=== PATIENT | female | born 1940 | race Caucasian/White ===

== ENCOUNTER 2019-02-01 07:30 | Inpatient (IN) | payer MEDICARE, OTHER ==
[2019-01-28 16:03] LABS: BASOPHILS # (AUTO) 0.1 X10'3 (0-0.2); BASOPHILS % (AUTO) 0.8 % (0-1); EOSINOPHILS # (AUTO) 0.1 X10'3 (0-0.9); EOSINOPHILS % (AUTO) 0.8 % (0-6); LYMPHOCYTES # (AUTO) 1.3 X10'3 (1.1-4.8); LYMPHOCYTES % (AUTO) 15.9 % (21-51); MEAN CORPUSCULAR HEMOGLOBIN 31.3 PG (27.0-31.0); MEAN CORPUSCULAR HGB CONC 33.9 g/dL (33.0-36.5); MEAN CORPUSCULAR VOLUME 92.4 FL (78-98); MEAN PLATELET VOLUME 7.8 FL (7.4-10.4); MONOCYTES # (AUTO) 0.8 X10'3 (0-0.9); MONOCYTES % (AUTO) 9.3 % (2-12); NEUTROPHILS # (AUTO) 6.2 X10'3 (1.8-7.7); NEUTROPHILS % (AUTO) 73.2 % (42-75); PRE OP HEMATOCRIT 37.5 % (35.0-45.0); PRE OP HEMOGLOBIN 12.7 g/dL (12.0-16.0); PRE OP PLATELET COUNT 436 X10'3 (140-440); RED BLOOD COUNT 4.06 X10'6 (4.20-5.60); RED CELL DISTRIBUTION WIDTH 13.4 % (11.5-14.5)
[2019-01-28 16:14] LABS: ALBUMIN 3.4 G/DL (3.4-5.0); ALBUMIN/GLOBULIN RATIO 0.9 (1.1-1.5); ALKALINE PHOSPHATASE 112 IU/L (46-116); BLOOD UREA NITROGEN 29 MG/DL (7-18); BUN/CREATININE RATIO 35.8 (6.6-38.0); CALCIUM 8.9 MG/DL (8.5-10.1); CHLORIDE 105 MMOL/L (99-107); CREATININE 0.81 MG/DL (0.40-0.90); PRE OP ALT 34 U/L (30-65); PRE OP ANION GAP 4 (8-16); PRE OP AST 26 U/L (10-37); PRE OP BILIRUB, TOTAL 0.5 MG/DL (0.0-1.0); PRE OP GLUCOSE 94 MG/DL (70-104); PRE OP SODIUM 139 MMOL/L (135-145); TOTAL CARBON DIOXIDE 30.2 MMOL/L (24-32); TOTAL PROTEIN 7.2 G/DL (6.4-8.2); eGFR 68 ML/MIN
[~2019-02-01] VITALS: Ht 165.1 cm; Wt 75.2 kg
[~2019-02-01 07:30] MED LIST: ASPI81TA96 PO; CALC-89 PO; CARB-87 PO; CHOL200035 PO; DICL1ADH18; DICL50TA8 PO; HYDR-4383 PO; HYDR12.597 PO; LOSA50TA3 PO; POLY17PO10 PO; QUET-1 PO; ROSU20TA2 PO; SENN-162 PO; SERT50TA PO; UBID100C16 PO; VANCOMYCIN 1,500MG inj. 1,500 MG in normal saline 250ml IV soln 280 ML IV ONE; ZOLP6.2523 PO; cefazolin/dext.iso 2gm/100 ML IV ONE; famotidine 20mg tablet PO ONE; ringers solution, lacted 1,000 ML IV SCH
[2019-02-04] VITALS (18 sets, daily range): BP systolic 129–165; BP diastolic 53–79
[2019-02-04] MEDS ORDERED: ringers solution, lacted 1,000 ML IV SCH ×2 (05:00→10:59)
[2019-02-04] MEDS ORDERED: famotidine 20mg tablet PO ONE (05:30)
[2019-02-04] MEDS ORDERED: VANCOMYCIN 1,500MG inj. 1,500 MG in normal saline 250ml IV soln 280 ML IV ONE (05:30)
[2019-02-04] MEDS ORDERED: cefazolin/dext.iso 2gm/100 ML IV ONE (05:30)
[2019-02-04] MEDS ORDERED: proCHLORperazine 10 MG/2 ml inj IV PRN (11:00)
[2019-02-04] MEDS ORDERED: ondansetron/PF 4mg/2ml inj IV PRN ×2 (11:00→16:25)
[2019-02-04] MEDS ORDERED: morphine 4 MG/ML inj SYRINge IV PRN ×2 (11:00)
[2019-02-04] MEDS ORDERED: meperidine/PF 25mg/ml syringe IV PRN ×3 (11:00)
[2019-02-04] MEDS ORDERED: HYDROcodone/acetaminophen 5mg/325mg tablet PO ONE (11:35)
[2019-02-04] MEDS ORDERED: ROPIVAcaine 0.5% (5mg/ml) 30ml vial ONE (12:09)
[2019-02-04] MEDS ORDERED: ketorolac trometh. 30mg/ml inj. ONE (12:09)
[2019-02-04] MEDS ORDERED: tranexamic acid inj. 770 MG in normal saline 100ml IV soln 100 ML IV ONE ×2 (13:00→13:05)
[2019-02-04] MEDS ORDERED: fentaNYL/PF 50MCG/1 ML 2ML syringe ONE (13:59)
[2019-02-04] MEDS ORDERED: ondansetron/PF 4mg/2ml inj ONE (14:01)
[2019-02-04] MEDS ORDERED: LIDOcaine 1%/PF 5ML 10 MG/ML VIAL ONE (14:01)
[2019-02-04] MEDS ORDERED: sevoflurane 250ml liquid IH ONE (14:01)
[2019-02-04] MEDS ORDERED: midazolam 2 mg/2 ml injection ONE (14:05)
[2019-02-04] MEDS ORDERED: ROPIVAcaine 0.2%/PF PAIN PUMP 500 ML IJ SCH (16:00)
[2019-02-04] MEDS ORDERED: propofol inj 20 ML IV ONE (16:06)
[2019-02-04] MEDS ORDERED: dexamethasone sod phosphate 4mg/ml inj. ONE (16:06)
--- NOTE | 2019-02-04 16:19 | NUR ---
Received from OR via , accompanied by Anesthesiologist DR DOUGHERTY and report given by Anesthesiolgist. AWAKENS TO VOICE. VITALS STABLE. DRESSING DI. JOSE PAIN. RUE IN SLING. FINGERS WARM AND PINK.
[2019-02-04] MEDS ORDERED: HYDROmorphone 1 mg/ml syringe IV PRN (16:25)
[2019-02-04] MEDS ORDERED: magnesium hydroxide 30ml (MOM) UD suspension PO PRN (16:25)
[2019-02-04] MEDS ORDERED: bisacodyl 10mg suppository rectal RC PRN (16:25)
[2019-02-04] MEDS ORDERED: acetaminophen 325mg tablet PO PRN (16:25)
[2019-02-04] MEDS ORDERED: sennosides 8.6mg tablet PO PRN (16:25)
[2019-02-04] MEDS ORDERED: HYDROmorphone inj. 0.5 MG/0.5 ML DISP.SYRIN IV PRN (16:25)
[2019-02-04] MEDS ORDERED: diphenhydrAMINE 25mg capsule PO PRN ×2 (16:25)
--- NOTE | 2019-02-04 17:15 | NUR ---
Patient report received from Rosalio VAZQUEZ
--- NOTE | 2019-02-04 17:19 | NUR ---
Report called to receiving nurse. Transferred via BED Belongings . Special Issues communicated to receiving nurse. AWAKE AND ORIENTED. VITALS STABLE. DRESSING DI. JOSE PAIN. TO ORTHO RM 4012B AT THIS TIME.
--- NOTE | 2019-02-04 18:39 | NUR ---
Problems reprioritized. Patient report given, questions answered & plan of care reviewed with Lisa VAZQUEZ.
--- NOTE | 2019-02-04 18:43 | NUR ---
RC'D VERBAL REPORT FROM MARYELLEN AND ASSUMED CARE OF PATIENT.
[2019-02-04] MEDS ORDERED: tranexamic acid inj. 750 MG in normal saline 100ml IV soln 100 ML IV ONE (19:30)
[2019-02-04] MEDS ORDERED: vancomycin/NS 1 GM ADD-VANTAGE 250 ML IV SCH (20:00)
[2019-02-04] MEDS: ketorolac tromethamine 15mg/ml inj. IV SCH (20:10)
[2019-02-04] MEDS: acetaminophen 325mg tablet PO SCH (20:11)
[2019-02-04] MEDS ORDERED: Rosuvastatin 20 MG TAB PO SCH (21:00)
[2019-02-04] MEDS: zolpidem 5mg tablet PO SCH (21:00)
[2019-02-04] MEDS: QUEtiapine 25mg tablet PO SCH (21:27)
[2019-02-04] MEDS: sennosides 8.6mg tablet PO SCH (21:27)
[2019-02-04] MEDS: carbidoba-levodopa 25-100mg tablet PO SCH (21:28)
[2019-02-04] MEDS: potassium cl 20mEq in 1/2 NS 1,000 ML IV SCH (21:50)
[2019-02-05] MEDS: ceFAZolin 1GM/D5W- ADD-VANTAGE 50 ML IV SCH ×2 (00:15→08:27)
[2019-02-05] MEDS: ketorolac tromethamine 15mg/ml inj. IV SCH ×3 (02:00→13:16)
[2019-02-05] MEDS: acetaminophen 325mg tablet PO SCH ×4 (02:00→19:56)
[2019-02-05 06:10] VITALS: BP 128/55
[2019-02-05 06:28] LABS: ANION GAP 7 (8-16); CHLORIDE 104 MMOL/L (99-107); POTASSIUM 5.7 MMOL/L (3.5-5.1); SODIUM 132 MMOL/L (135-145); TOTAL CARBON DIOXIDE 21.5 MMOL/L (24-32)
--- NOTE | 2019-02-05 06:38 | NUR ---
SLEPT FAIRLY WELL LAST NIGHT, DID WAKE UP AT ONE POINT AND WAS DISORIENTED, SPEAKING UPPER SORBIAN TO STAFF, BUT REASSURED AND DID CALM DOWN. STATED "I MUST HAVE BEEN DREAMING". UP TO VOID WITH 1 ASSIT MULTIPLE TIMES WITH ADEQUATE OUTPUT., REPORT TO EARLY SHIFT
[2019-02-05 06:58] LABS: BASOPHILS % (AUTO) 0.2 % (0-1); EOSINOPHILS % (AUTO) 0 % (0-6); HEMATOCRIT 30.7 % (35.0-45.0); HEMOGLOBIN 10.6 g/dl (12.0-16.0); LYMPHOCYTES # (AUTO) 0.7 X10'3 (1.1-4.8); LYMPHOCYTES % (AUTO) 6.8 % (21-51); MEAN CORPUSCULAR HEMOGLOBIN 31.9 PG (27.0-31.0); MEAN CORPUSCULAR HGB CONC 34.5 g/dL (33.0-36.5); MEAN CORPUSCULAR VOLUME 92.5 FL (78-98); MEAN PLATELET VOLUME 8.9 FL (7.4-10.4); MONOCYTES # (AUTO) 0.5 X10'3 (0-0.9); MONOCYTES % (AUTO) 5.1 % (2-12); NEUTROPHILS # (AUTO) 9.2 X10'3 (1.8-7.7); NEUTROPHILS % (AUTO) 87.9 % (42-75); PLATELET COUNT 279 X10'3 (140-440); RED BLOOD COUNT 3.31 X10'6 (4.20-5.60); RED CELL DISTRIBUTION WIDTH 13.4 % (11.5-14.5); WHITE BLOOD COUNT 10.4 X10'3 (4.5-11.0)
[2019-02-05] MEDS ORDERED: [UNRECOGNIZED DRUG - OTHER] PO SCH (08:00)
[2019-02-05] MEDS ORDERED: PYRIDOXINE PO SCH (08:00)
[2019-02-05] MEDS ORDERED: non-formulary drug (Ubidecarenone (Coq-10) 200 MG) PO SCH (08:00)
[2019-02-05] MEDS ORDERED: CALCIUM PO SCH (08:00)
[2019-02-05] MEDS ORDERED: VIT B12 PO SCH (08:00)
[2019-02-05] MEDS: potassium cl 20mEq in 1/2 NS 1,000 ML IV SCH (08:21)
[2019-02-05] MEDS: sertraline 50mg tablet PO SCH (08:25)
[2019-02-05] MEDS: aspirin 325mg tablet PO SCH (08:26)
[2019-02-05] MEDS: carbidoba-levodopa 25-100mg tablet PO SCH ×3 (08:26→20:07)
[2019-02-05] MEDS: vitamin D (cholecalciferol) 1,000 unit tablet PO SCH (08:26)
[2019-02-05] MEDS: losartan 50mg tablet PO SCH (08:30)
[2019-02-05 10:00] VITALS: BP 132/58
--- NOTE | 2019-02-05 11:40 | NUR ---
Joint replacement consult: Pt seen by HELEN for written and verbal high protein education. RD reviewed high protein needs for wound healing, immune strength, high protein foods, and protein supplementation options. RD contact information provided. Pt currently on a regular diet with documented 25-50% PO intake of dinner last evening, pending documented PO intake today. Pt endorses a good appetite and denies any food allergies or difficulty chewing/swallowing. Pt agreeable to chocolate Ensure for additional protein needs. Recommend Ensure High Protein MD beryl DELA CRUZ d/w dietary. Will continue to follow. Addendum: 02/05/19 at [address] Amended: Links added.
[2019-02-05] MEDS ORDERED: lactose-reduced food (Ensure High Protein) 237ml bottle PO SCH (13:00)
[2019-02-05] MEDS: oxyCODONE IR 5mg (immed. release) tablet PO PRN ×3 (14:17→22:16)
--- NOTE | 2019-02-05 15:00 | NUR ---
On q put at 6ml.hr
--- NOTE | 2019-02-05 15:43 | NUR ---
Patient report given to Mati VAZQUEZ
[2019-02-05 18:00] VITALS: BP 119/35
--- NOTE | 2019-02-05 18:15 | NUR ---
increased on q to 8ml/hr
--- NOTE | 2019-02-05 18:16 | NUR ---
Problems reprioritized. Patient report given, questions answered & plan of care reviewed with alize VAZQUEZ.
--- NOTE | 2019-02-05 18:23 | NUR ---
Patient in room ORTHO 4012. I have received report from Mati VAZQUEZ and had the opportunity to ask questions and assume patient care.
[2019-02-05] MEDS: celeCOXIB 100mg capsule PO SCH (19:56)
[2019-02-05] MEDS: sennosides 8.6mg tablet PO SCH (20:07)
[2019-02-05] MEDS: QUEtiapine 25mg tablet PO SCH (20:07)
[2019-02-05] MEDS: zolpidem 5mg tablet PO SCH (20:11)
[2019-02-05] MEDS ORDERED: ROSUVASTATIN 20MG PO SCH (21:00)
[2019-02-05 22:00] VITALS: BP 129/39
[2019-02-06] MEDS: oxyCODONE IR 5mg (immed. release) tablet PO PRN ×3 (01:59→09:32)
[2019-02-06] MEDS: acetaminophen 325mg tablet PO SCH ×2 (01:59→08:31)
[2019-02-06 06:10] VITALS: BP 124/52
--- NOTE | 2019-02-06 06:33 | NUR ---
Problems reprioritized. Patient report given, questions answered & plan of care reviewed with María Elena VAZQUEZ.
--- NOTE | 2019-02-06 06:40 | NUR ---
Patient in room ORTHO 4012. I have received report from Pratibha VAZQUEZ and had the opportunity to ask questions and assume patient care.
[2019-02-06 06:46] LABS: BASOPHILS % (AUTO) 0.4 % (0-1); EOSINOPHILS # (AUTO) 0.1 X10'3 (0-0.9); EOSINOPHILS % (AUTO) 0.9 % (0-6); HEMATOCRIT 34.4 % (35.0-45.0); HEMOGLOBIN 11.6 g/dl (12.0-16.0); LYMPHOCYTES # (AUTO) 2.5 X10'3 (1.1-4.8); LYMPHOCYTES % (AUTO) 28.5 % (21-51); MEAN CORPUSCULAR HEMOGLOBIN 31.7 PG (27.0-31.0); MEAN CORPUSCULAR HGB CONC 33.8 g/dL (33.0-36.5); MEAN CORPUSCULAR VOLUME 93.7 FL (78-98); MEAN PLATELET VOLUME 8.7 FL (7.4-10.4); MONOCYTES # (AUTO) 0.9 X10'3 (0-0.9); MONOCYTES % (AUTO) 9.7 % (2-12); NEUTROPHILS # (AUTO) 5.3 X10'3 (1.8-7.7); NEUTROPHILS % (AUTO) 60.5 % (42-75); PLATELET COUNT 333 X10'3 (140-440); RED BLOOD COUNT 3.67 X10'6 (4.20-5.60); RED CELL DISTRIBUTION WIDTH 13.6 % (11.5-14.5); WHITE BLOOD COUNT 8.8 X10'3 (4.5-11.0)
[2019-02-06] MEDS ORDERED: HYDROchlorothiazide 12.5mg capsule PO SCH (08:00)
[2019-02-06] MEDS: losartan 50mg tablet PO SCH (08:00)
[2019-02-06] MEDS: celeCOXIB 100mg capsule PO SCH (08:30)
[2019-02-06] MEDS: aspirin 325mg tablet PO SCH (08:30)
[2019-02-06] MEDS: carbidoba-levodopa 25-100mg tablet PO SCH (08:30)
[2019-02-06] MEDS: vitamin D (cholecalciferol) 1,000 unit tablet PO SCH (08:30)
[2019-02-06] MEDS: sertraline 50mg tablet PO SCH (08:30)
[2019-02-06 10:00] VITALS: BP 132/58
--- NOTE | 2019-02-06 10:15 | NUR ---
Patient discharged with and family they were taught all discharge instructions. She was rolled out in wheelchair.
[2019-02-06] MEDS ORDERED: acetaminophen 325mg tablet PO PRN (16:25)
== END 2019-02-06 10:10 | disposition home or self-care (01) | DRG 483 ==
LOC: EDSTATUS 07:30 → PAS IN 02-04 09:47 → EDSTATUS 02-04 12:15 → ORTHO 4S 02-04 17:30
PROVIDERS: ADMIT Orthopaedic Surgery; ATTEND Orthopaedic Surgery
PROC: 3E0T3BZ Introduction of Anesthetic Agent into Peripheral Nerves and Plexi, Percutaneous Approach (ICD-10-PCS; 2019-02-04)
PROC: 0RRJ00Z Replacement of Right Shoulder Joint with Reverse Ball and Socket Synthetic Substitute, Open Approach (ICD-10-PCS; principal; 2019-02-04 14:01)
DX: S42.231A 3-part fracture of surgical neck of right humerus, initial encounter for closed fracture (principal); I10 Essential (primary) hypertension; G89.29 Other chronic pain; W01.0XXA Fall on same level from slipping, tripping and stumbling without subsequent striking against object, initial encounter; G20 Parkinson's disease; K21.9 Gastro-esophageal reflux disease without esophagitis; F32.9 Major depressive disorder, single episode, unspecified; F41.9 Anxiety disorder, unspecified; I25.10 Atherosclerotic heart disease of native coronary artery without angina pectoris; Y93.89 Activity, other specified; Y99.8 Other external cause status; Z98.42 Cataract extraction status, left eye; Z98.41 Cataract extraction status, right eye; Y92.091 Bathroom in other non-institutional residence as the place of occurrence of the external cause
CPT/HCPCS: 36415; 71046; 80051; 80053; 82948; 85025; 87070; 93005; 97110; 97116; 97161; A7000; G0378; J0690; J1100; J1170; J1885; J2001; J2250; J2405; J2704; J2795; J3010; J3370; J7030; J7040; J7120

== ENCOUNTER 2020-09-14 08:05 | Emergency (ER) | payer MEDICARE, OTHER ==
[~2020-09-14] VITALS: Ht 165.1 cm; Wt 74.0 kg
[~2020-09-14 08:05] MED LIST changes: -DICL1ADH18; +DICL1PAT13; -SENN-162 PO; +SENN-263 PO; -VANCOMYCIN 1,500MG inj. 1,500 MG in normal saline 250ml IV soln 280 ML IV ONE; -cefazolin/dext.iso 2gm/100 ML IV ONE; -famotidine 20mg tablet PO ONE; -ringers solution, lacted 1,000 ML IV SCH
[2020-09-14] MEDS ORDERED: mineral oil 133ml enema RC PRN (08:35)
--- NOTE | 2020-09-14 09:46 | NUR ---
Spoke with pt's Fredrick. He is going to go home and we can call him when she is ready to go.
--- NOTE | 2020-09-14 09:52 | NUR ---
Dr Swanson aware that the pt did not have any results from the enema.
[2020-09-14 10:40] LABS: BASOPHILS % (AUTO) 0.7 % (0-1); EOSINOPHILS % (AUTO) 0.9 % (0-6); HEMATOCRIT 43.6 % (35.0-45.0); HEMOGLOBIN 14.5 g/dl (12.0-16.0); LYMPHOCYTES # (AUTO) 1.2 X10'3 (1.1-4.8); LYMPHOCYTES % (AUTO) 23.2 % (21-51); MEAN CORPUSCULAR HEMOGLOBIN 30.5 PG (27.0-31.0); MEAN CORPUSCULAR HGB CONC 33.3 g/dL (33.0-36.5); MEAN CORPUSCULAR VOLUME 91.5 FL (78-98); MEAN PLATELET VOLUME 9.4 FL (7.4-10.4); MONOCYTES # (AUTO) 0.5 X10'3 (0-0.9); MONOCYTES % (AUTO) 9.6 % (2-12); NEUTROPHILS # (AUTO) 3.3 X10'3 (1.8-7.7); NEUTROPHILS % (AUTO) 65.6 % (42-75); PLATELET COUNT 240 X10'3 (140-440); RED BLOOD COUNT 4.77 X10'6 (4.20-5.60); RED CELL DISTRIBUTION WIDTH 14.7 % (11.5-14.5)
[2020-09-14 10:55] LABS: ALANINE AMINOTRANSFERASE 42 U/L (12-78); ALBUMIN 3.9 G/DL (3.4-5.0); ALBUMIN/GLOBULIN RATIO 1.3 (1.1-1.5); ALKALINE PHOSPHATASE 73 IU/L (46-116); ANION GAP 8 (8-16); ASPARTATE AMINO TRANSFERASE 22 U/L (10-37); BILIRUBIN,TOTAL 0.4 MG/DL (0.1-1.0); BLOOD UREA NITROGEN 14 MG/DL (7-18); BUN/CREATININE RATIO 16.3 (6.6-38.0); CALCIUM 8.9 MG/DL (8.5-10.1); CHLORIDE 105 MMOL/L (99-107); CREATININE 0.86 MG/DL (0.40-0.90); GLUCOSE 104 MG/DL (70-104); POTASSIUM 3.6 MMOL/L (3.5-5.1); SODIUM 141 MMOL/L (135-145); TOTAL CARBON DIOXIDE 28.5 MMOL/L (24-32); eGFR 63 ML/MIN
[2020-09-14] MEDS ORDERED: iohexol 300mg/ml 100ml inj. ONE (11:10)
--- NOTE | 2020-09-14 11:13 | NUR ---
Pt transported to CT with tech via wheelchair.
--- NOTE | 2020-09-14 11:29 | NUR ---
Pt returned from CT via wheelchair with tech.
[2020-09-14 11:35] LABS: CLARITY,URINE CLEAR (Clear); COLOR,URINE YELLOW (Yellow); GLUCOSE, URINE NEGATIVE (Neg); KETONES,URINE NEGATIVE (Neg); LEUKOCYTE ESTERASE ,URINE NEGATIVE (Neg); NITRITES, URINE NEGATIVE (Neg); OCCULT BLOOD,URINE NEGATIVE (Neg); PROTEIN,URINE NEGATIVE (Neg); UROBILINOGEN,URINE 0.2 E.U/dL (0.2-1.0)
[2020-09-14 11:36] LABS: UA COLLECTION TYPE STRAIGHT CATH
[2020-09-14] MEDS ORDERED: PEG1POWD PO (12:30)
[2020-09-14 12:58] VITALS: BP 165/77
== END 2020-09-14 13:01 | disposition home or self-care (01) ==
LOC: ER 08:06
DX: K59.00 Constipation, unspecified (principal); R11.0 Nausea; I25.10 Atherosclerotic heart disease of native coronary artery without angina pectoris; E78.00 Pure hypercholesterolemia, unspecified; I10 Essential (primary) hypertension; I25.2 Old myocardial infarction; K21.9 Gastro-esophageal reflux disease without esophagitis; G89.29 Other chronic pain; F32.9 Major depressive disorder, single episode, unspecified; Z87.440 Personal history of urinary (tract) infections; Z98.890 Other specified postprocedural states; Z88.8 Allergy status to other drugs, medicaments and biological substances; Z79.82 Long term (current) use of aspirin; Z79.899 Other long term (current) drug therapy
CPT/HCPCS: 36415; 74177; 80053; 81003; 85025; 99285; Q9967

== ENCOUNTER 2021-04-10 18:23 | Emergency (ER) | payer MEDICARE, OTHER ==
[~2021-04-10] VITALS: Ht 165.1 cm; Wt 75.0 kg
[~2021-04-10 18:23] MED LIST changes: +CARB-296 PO; -CARB-87 PO; +PEG1POWD PO
[2021-04-10 18:27] VITALS: BP 140/98
[2021-04-10 19:06] LABS: BASOPHILS % (AUTO) 0.5 % (0-1); EOSINOPHILS % (AUTO) 0.6 % (0-6); HEMOGLOBIN 13.5 g/dl (12.0-16.0); LYMPHOCYTES # (AUTO) 1.3 X10'3 (1.1-4.8); LYMPHOCYTES % (AUTO) 20.8 % (21-51); MEAN CORPUSCULAR HEMOGLOBIN 31.2 PG (27.0-31.0); MEAN CORPUSCULAR VOLUME 94.6 FL (78-98); MEAN PLATELET VOLUME 8.8 FL (7.4-10.4); MONOCYTES # (AUTO) 0.5 X10'3 (0-0.9); MONOCYTES % (AUTO) 8.1 % (2-12); NEUTROPHILS # (AUTO) 4.5 X10'3 (1.8-7.7); PLATELET COUNT 280 X10'3 (140-440); RED BLOOD COUNT 4.33 X10'6 (4.20-5.60); RED CELL DISTRIBUTION WIDTH 13.9 % (11.5-14.5); WHITE BLOOD COUNT 6.4 X10'3 (4.5-11.0)
[2021-04-10 19:09] LABS: ALANINE AMINOTRANSFERASE 18 U/L (12-78); ALBUMIN 3.8 G/DL (3.4-5.0); ALBUMIN/GLOBULIN RATIO 1.1 (1.1-1.5); ALKALINE PHOSPHATASE 61 IU/L (46-116); ANION GAP 8 (8-16); ASPARTATE AMINO TRANSFERASE 22 U/L (10-37); BILIRUBIN,TOTAL 0.6 MG/DL (0.1-1.0); BLOOD UREA NITROGEN 23 MG/DL (7-18); BUN/CREATININE RATIO 21.9 (6.6-38.0); CALCIUM 8.8 MG/DL (8.5-10.1); CHLORIDE 104 MMOL/L (99-107); CREATININE 1.05 MG/DL (0.40-0.90); GLUCOSE 102 MG/DL (70-104); POTASSIUM 3.5 MMOL/L (3.5-5.1); SODIUM 141 MMOL/L (135-145); TOTAL CARBON DIOXIDE 28.7 MMOL/L (24-32); TOTAL PROTEIN 7.4 G/DL (6.4-8.2); eGFR 50 ML/MIN
[2021-04-10 19:21] LABS: CLARITY,URINE CLEAR (Clear); COLOR,URINE YELLOW (Yellow); GLUCOSE, URINE NEGATIVE (Neg); KETONES,URINE TRACE mg/dl (Neg); LEUKOCYTE ESTERASE ,URINE NEGATIVE (Neg); NITRITES, URINE NEGATIVE (Neg); OCCULT BLOOD,URINE TRACE-INTACT (Neg); PH,URINE 5.5 (4.8-8.0); PROTEIN,URINE NEGATIVE (Neg); UROBILINOGEN,URINE 0.2 E.U/dL (0.2-1.0)
[2021-04-10 19:27] LABS: UA COLLECTION TYPE CLN CATCH MIDSTREAM
[2021-04-10 19:30] LABS: BACTERIA,URINE NONE SEEN /HPF (Neg); SQUAMOUS EPITHELIAL CELL,UR NONE SEEN /LPF (FEW); WBC,URINE NONE SEEN /HPF (0-4)
[2021-04-11] MEDS ORDERED: LIDO1ADH67 TOP (09:05)
== END 2021-04-10 22:56 | disposition left against medical advice (07) ==
LOC: ER 18:24
DX: R10.9 Unspecified abdominal pain (principal); Z53.21 Procedure and treatment not carried out due to patient leaving prior to being seen by health care provider
CPT/HCPCS: 36415; 80053; 81001; 85025

== ENCOUNTER 2021-04-11 07:30 | Emergency (ER) | payer MEDICARE, OTHER ==
[~2021-04-11] VITALS: Ht 165.1 cm; Wt 70.5 kg
[2021-04-11] MEDS ORDERED: LIDOcaine 5% patch TP STA (08:55)
[2021-04-11] MEDS ORDERED: LIDO1ADH67 TOP (09:05)
[2021-04-11 09:16] VITALS: BP 157/71
== END 2021-04-11 09:18 | disposition home or self-care (01) ==
LOC: ER 07:32
DX: M54.5 Low back pain (principal); K59.00 Constipation, unspecified; R11.0 Nausea; G89.29 Other chronic pain; M54.2 Cervicalgia; I25.10 Atherosclerotic heart disease of native coronary artery without angina pectoris; E78.00 Pure hypercholesterolemia, unspecified; I10 Essential (primary) hypertension; K21.9 Gastro-esophageal reflux disease without esophagitis; F32.9 Major depressive disorder, single episode, unspecified; Z87.440 Personal history of urinary (tract) infections; Z98.890 Other specified postprocedural states; Z88.8 Allergy status to other drugs, medicaments and biological substances; Z79.82 Long term (current) use of aspirin; Z79.899 Other long term (current) drug therapy
CPT/HCPCS: 99284

== ENCOUNTER 2021-11-15 19:12 | Emergency (ER) | payer MEDICARE, OTHER ==
[~2021-11-15] VITALS: Ht 165.1 cm; Wt 67.3 kg
[~2021-11-15 19:12] MED LIST changes: +LIDO1ADH67 TOP
[2021-11-15 19:19] VITALS: BP 121/73
--- NOTE | 2021-11-15 20:20 | NUR ---
LAB AT BEDSIDE
[2021-11-15 20:29] LABS: BASOPHILS % (AUTO) 0.2 % (0-1); EOSINOPHILS % (AUTO) 0.5 % (0-6); HEMATOCRIT 44.1 % (35.0-45.0); HEMOGLOBIN 14.6 g/dl (12.0-16.0); LYMPHOCYTES # (AUTO) 0.2 X10'3 (1.1-4.8); LYMPHOCYTES % (AUTO) 2.4 % (21-51); MEAN CORPUSCULAR HEMOGLOBIN 29.8 PG (27.0-31.0); MEAN CORPUSCULAR HGB CONC 33.1 g/dL (33.0-36.5); MEAN CORPUSCULAR VOLUME 90.1 FL (78-98); MEAN PLATELET VOLUME 9.5 FL (7.4-10.4); MONOCYTES # (AUTO) 0.4 X10'3 (0-0.9); MONOCYTES % (AUTO) 5.1 % (2-12); NEUTROPHILS # (AUTO) 6.5 X10'3 (1.8-7.7); NEUTROPHILS % (AUTO) 91.8 % (42-75); PLATELET COUNT 196 X10'3 (140-440); RED CELL DISTRIBUTION WIDTH 13.9 % (11.5-14.5); WHITE BLOOD COUNT 7.1 X10'3 (4.5-11.0)
--- NOTE | 2021-11-15 20:29 | NUR ---
UNABLE TO OBTAIN URINE FROM PATIENT , SHE STATES THAT SHE CANT URINATE AT THIS TIME
[2021-11-15 20:49] LABS: ALANINE AMINOTRANSFERASE 11 U/L (12-78); ALBUMIN 3.9 G/DL (3.4-5.0); ALBUMIN/GLOBULIN RATIO 1.2 (1.1-1.5); ALKALINE PHOSPHATASE 58 IU/L (46-116); ANION GAP 15 (8-16); ASPARTATE AMINO TRANSFERASE 19 U/L (10-37); BILIRUBIN,TOTAL 0.9 MG/DL (0.1-1.0); BLOOD UREA NITROGEN 35 MG/DL (7-18); BUN/CREATININE RATIO 37.6 (6.6-38.0); CALCIUM 9.3 MG/DL (8.5-10.1); CHLORIDE 104 MMOL/L (99-107); CREATININE 0.93 MG/DL (0.40-0.90); GLUCOSE 131 MG/DL (70-104); LIPASE 51 U/L (73-393); POTASSIUM 3.5 MMOL/L (3.5-5.1); SODIUM 144 MMOL/L (135-145); TOTAL CARBON DIOXIDE 25.5 MMOL/L (24-32); TOTAL PROTEIN 7.1 G/DL (6.4-8.2); eGFR 58 ML/MIN
--- NOTE | 2021-11-15 21:13 | NUR ---
JAMES DE LA CRUZ [phone] CELL PHONE
[2021-11-15] MEDS ORDERED: cefTRIAXone 1g/NS 100ml IVPB 100 ML IV ONE (23:20)
[2021-11-15] MEDS ORDERED: CEPH-585 PO (23:21)
[2021-11-15] MEDS ORDERED: CefTRIAXone 1000mg IM Kit (w/lidocaine diluent) IM ONE (23:30)
== END 2021-11-15 23:49 | disposition left against medical advice (07) ==
LOC: ER 19:13
DX: R10.30 Lower abdominal pain, unspecified (principal); R11.0 Nausea; R05.9 Cough, unspecified; G20 Parkinson's disease; F02.80 Dementia in other diseases classified elsewhere, unspecified severity, without behavioral disturbance, psychotic disturbance, mood disturbance, and anxiety; R25.1 Tremor, unspecified; I25.10 Atherosclerotic heart disease of native coronary artery without angina pectoris; E78.00 Pure hypercholesterolemia, unspecified; I10 Essential (primary) hypertension; I25.2 Old myocardial infarction; K21.9 Gastro-esophageal reflux disease without esophagitis; G89.29 Other chronic pain; Z87.440 Personal history of urinary (tract) infections; Z88.8 Allergy status to other drugs, medicaments and biological substances; Z79.82 Long term (current) use of aspirin; Z79.899 Other long term (current) drug therapy; Z79.2 Long term (current) use of antibiotics
CPT/HCPCS: 36415; 80053; 83690; 85025; 96372; 99284; J0696

== ENCOUNTER 2021-12-17 08:41 | Emergency (ER) | payer MEDICARE, OTHER ==
[~2021-12-17] VITALS: Ht 165.1 cm; Wt 65.0 kg
[~2021-12-17 08:41] MED LIST changes: +CEPH-585 PO
[2021-12-17 10:42] LABS: BASOPHILS # (AUTO) 0.1 X10'3 (0-0.2); BASOPHILS % (AUTO) 0.8 % (0-1); EOSINOPHILS # (AUTO) 0.1 X10'3 (0-0.9); EOSINOPHILS % (AUTO) 1.1 % (0-6); HEMATOCRIT 42.6 % (35.0-45.0); HEMOGLOBIN 14.4 g/dl (12.0-16.0); LYMPHOCYTES # (AUTO) 1.8 X10'3 (1.1-4.8); MEAN CORPUSCULAR HEMOGLOBIN 30.8 PG (27.0-31.0); MEAN CORPUSCULAR HGB CONC 33.8 g/dL (33.0-36.5); MEAN CORPUSCULAR VOLUME 91.1 FL (78-98); MEAN PLATELET VOLUME 9.6 FL (7.4-10.4); MONOCYTES # (AUTO) 0.5 X10'3 (0-0.9); NEUTROPHILS # (AUTO) 4.3 X10'3 (1.8-7.7); NEUTROPHILS % (AUTO) 63.1 % (42-75); PLATELET COUNT 178 X10'3 (140-440); RED BLOOD COUNT 4.67 X10'6 (4.20-5.60); RED CELL DISTRIBUTION WIDTH 14.5 % (11.5-14.5); WHITE BLOOD COUNT 6.8 X10'3 (4.5-11.0)
[2021-12-17 11:04] LABS: ALANINE AMINOTRANSFERASE 6 U/L (12-78); ALBUMIN 3.6 G/DL (3.4-5.0); ALBUMIN/GLOBULIN RATIO 1.1 (1.1-1.5); ALKALINE PHOSPHATASE 51 IU/L (46-116); ANION GAP 9 (8-16); ASPARTATE AMINO TRANSFERASE 18 U/L (10-37); BILIRUBIN,TOTAL 0.9 MG/DL (0.1-1.0); BLOOD UREA NITROGEN 31 MG/DL (7-18); CALCIUM 9.3 MG/DL (8.5-10.1); CHLORIDE 104 MMOL/L (99-107); CREATININE 0.86 MG/DL (0.40-0.90); GLUCOSE 100 MG/DL (70-104); SODIUM 140 MMOL/L (135-145); TOTAL CARBON DIOXIDE 27.1 MMOL/L (24-32); TOTAL PROTEIN 6.9 G/DL (6.4-8.2); eGFR 63 ML/MIN
[2021-12-17 11:22] LABS: CLARITY,URINE CLOUDY (Clear); COLOR,URINE YELLOW (Yellow); GLUCOSE, URINE NEGATIVE (Neg); KETONES,URINE TRACE mg/dl (Neg); LEUKOCYTE ESTERASE ,URINE NEGATIVE (Neg); NITRITES, URINE NEGATIVE (Neg); OCCULT BLOOD,URINE NEGATIVE (Neg); PH,URINE 7.5 (4.8-8.0); PROTEIN,URINE NEGATIVE (Neg)
[2021-12-17 11:23] LABS: UA COLLECTION TYPE NON-SPECIFIED
[2021-12-17 11:27] LABS: SQUAMOUS EPITHELIAL CELL,UR FEW /LPF (FEW)
[2021-12-17 11:28] LABS: BACTERIA,URINE FEW /HPF (Neg); RBC,URINE 0-2 /HPF (0-2); WBC,URINE 0-4 /HPF (0-4)
[2021-12-17 11:29] LABS: HYALINE CASTS 0-3 /LPF (NEGATIVE); MUCUS STRANDS MODERATE /LPF (Neg)
[2021-12-17] MEDS: potassium Cl 10 mEq/100mL bag IV SCH ×3 (12:14→13:19)
[2021-12-17] MEDS ORDERED: potassium chloride 10mEq ER tablet PO STA (13:43)
--- NOTE | 2021-12-17 13:45 | NUR ---
PT HAS BEEN COMPLAINING OF BURNING WITH K+ INFUSION. INFUSION WAS DROPPED FROM 100ML/HR TO 75ML/HR AND AGAIN TO 50ML/HR. PROVIDER NOTIFIED THAT PT CONTINUES TO HAVE BURNING. PER PROVIDER K+ INFUSION HAS BEEN D/C AND PO K+ ORDERED AND PENDING.
[2021-12-17 14:04] VITALS: BP 159/71
== END 2021-12-17 14:07 | disposition home or self-care (01) ==
LOC: ER 08:42
DX: E87.6 Hypokalemia (principal); K59.00 Constipation, unspecified; I25.10 Atherosclerotic heart disease of native coronary artery without angina pectoris; E78.00 Pure hypercholesterolemia, unspecified; I10 Essential (primary) hypertension; I25.2 Old myocardial infarction; K21.9 Gastro-esophageal reflux disease without esophagitis; G89.29 Other chronic pain; F32.A Depression, unspecified; Z87.440 Personal history of urinary (tract) infections; Z98.890 Other specified postprocedural states; Z88.8 Allergy status to other drugs, medicaments and biological substances; Z79.82 Long term (current) use of aspirin; Z79.2 Long term (current) use of antibiotics; Z79.899 Other long term (current) drug therapy
CPT/HCPCS: 36415; 80053; 81001; 85025; 96365; 96366; 99284; J3480

== ENCOUNTER 2022-01-08 01:48 | Emergency (ER) | payer MEDICARE, OTHER ==
[~2022-01-08] VITALS: Ht 162.6 cm; Wt 61.3 kg
[2022-01-08 03:03] LABS: BASOPHILS % (AUTO) 0.9 % (0-1); EOSINOPHILS # (AUTO) 0.1 X10'3 (0-0.9); EOSINOPHILS % (AUTO) 1.8 % (0-6); HEMATOCRIT 37.8 % (35.0-45.0); HEMOGLOBIN 12.7 g/dl (12.0-16.0); LYMPHOCYTES # (AUTO) 1.8 X10'3 (1.1-4.8); LYMPHOCYTES % (AUTO) 34.3 % (21-51); MEAN CORPUSCULAR HEMOGLOBIN 30.4 PG (27.0-31.0); MEAN CORPUSCULAR HGB CONC 33.5 g/dL (33.0-36.5); MEAN CORPUSCULAR VOLUME 90.5 FL (78-98); MEAN PLATELET VOLUME 9.7 FL (7.4-10.4); MONOCYTES # (AUTO) 0.5 X10'3 (0-0.9); NEUTROPHILS # (AUTO) 2.9 X10'3 (1.8-7.7); PLATELET COUNT 194 X10'3 (140-440); RED BLOOD COUNT 4.18 X10'6 (4.20-5.60); RED CELL DISTRIBUTION WIDTH 15.2 % (11.5-14.5); WHITE BLOOD COUNT 5.4 X10'3 (4.5-11.0)
[2022-01-08 03:12] LABS: ALBUMIN 3.5 G/DL (3.4-5.0); ALBUMIN/GLOBULIN RATIO 1.2 (1.1-1.5); ALKALINE PHOSPHATASE 48 IU/L (46-116); ANION GAP 6 (8-16); ASPARTATE AMINO TRANSFERASE 14 U/L (10-37); BILIRUBIN,TOTAL 0.9 MG/DL (0.1-1.0); BLOOD UREA NITROGEN 34 MG/DL (7-18); BUN/CREATININE RATIO 37.4 (6.6-38.0); CALCIUM 8.9 MG/DL (8.5-10.1); CHLORIDE 107 MMOL/L (99-107); CREATININE 0.91 MG/DL (0.40-0.90); GLUCOSE 92 MG/DL (70-104); LIPASE 75 U/L (73-393); SODIUM 141 MMOL/L (135-145); TOTAL PROTEIN 6.4 G/DL (6.4-8.2); eGFR 59 ML/MIN
[2022-01-08 03:20] LABS: ALANINE AMINOTRANSFERASE 6 U/L (12-78)
--- NOTE | 2022-01-08 03:35 | NUR ---
PT REQUESTED TO GO TO THE BATHROOM AND A SANDWICH. DR NORIEGA ASKED IF IT WAS OK TO FEED PT. HE GAVE THE OK TO GIVE PT FOOD. SHE IS CURRENTLY SITTING AT BEDSIDE EATING.
[2022-01-08] MEDS ORDERED: POTASSIUM BICARB 20meq eff tab 20 MEQ TABLET.EFF PO ONE (03:40)
[2022-01-08 04:04] LABS: CLARITY,URINE SLIGHTLY CLOUDY (Clear); COLOR,URINE YELLOW (Yellow); GLUCOSE, URINE NEGATIVE (Neg); KETONES,URINE TRACE mg/dl (Neg); LEUKOCYTE ESTERASE ,URINE NEGATIVE (Neg); NITRITES, URINE NEGATIVE (Neg); OCCULT BLOOD,URINE NEGATIVE (Neg); PROTEIN,URINE NEGATIVE (Neg)
[2022-01-08 04:13] LABS: UA COLLECTION TYPE OTHER
[2022-01-08 04:14] LABS: BACTERIA,URINE FEW /HPF (Neg)
[2022-01-08 04:16] VITALS: BP 181/99
[2022-01-08 04:16] LABS: MUCUS STRANDS MANY /LPF (Neg); WBC CLUMPS,URINE FEW /HPF (NEGATIVE); WBC,URINE 0-4 /HPF (0-4)
[2022-01-08 04:17] LABS: SQUAMOUS EPITHELIAL CELL,UR FEW /LPF (FEW)
[2022-01-08 04:18] LABS: RBC,URINE 0-2 /HPF (0-2)
[2022-01-08 04:19] LABS: TRANSITIONAL EPI CELLS,URINE FEW /HPF
== END 2022-01-08 04:19 | disposition home or self-care (01) ==
LOC: ER 01:49
DX: K59.00 Constipation, unspecified (principal); G89.29 Other chronic pain; R10.32 Left lower quadrant pain; E87.6 Hypokalemia; G20 Parkinson's disease; I25.10 Atherosclerotic heart disease of native coronary artery without angina pectoris; E78.00 Pure hypercholesterolemia, unspecified; I10 Essential (primary) hypertension; I25.2 Old myocardial infarction; K21.9 Gastro-esophageal reflux disease without esophagitis; Z87.440 Personal history of urinary (tract) infections; Z95.5 Presence of coronary angioplasty implant and graft; Z88.8 Allergy status to other drugs, medicaments and biological substances; Z79.82 Long term (current) use of aspirin; Z79.899 Other long term (current) drug therapy
CPT/HCPCS: 36415; 71045; 80053; 81001; 83690; 83880; 84484; 85025; 93005; 99285

== ENCOUNTER 2022-09-02 09:04 | Emergency (ER) | payer MEDICARE, OTHER ==
[~2022-09-02] VITALS: Ht 165.1 cm; Wt 50.0 kg
[~2022-09-02 09:04] MED LIST changes: +ASPI-611 PO; -ASPI81TA96 PO; +BETA1TAB20 PO; -CALC-89 PO; -CARB-296 PO; +CARB1TAB36 PO; -CEPH-585 PO; +CHOL10006 PO; -CHOL200035 PO; -DICL1PAT13; +DONE-46 PO; +ESZO3TAB44 PO; -HYDR-4383 PO; +HYDR12.55 PO; -HYDR12.597 PO; +LEVO15TA6 PO; -LIDO1ADH67 TOP; -LOSA50TA3 PO; +LOSA50TA64 PO; +MEMA10TA PO; +OMEG-117 PO; +OMEP20CA16 PO; +ONDA-103 PO; -PEG1POWD PO; +POLY119P2 PO; -POLY17PO10 PO; +POTA-188 PO; +PSYL575P5 PO; -QUET-1 PO; -ROSU20TA2 PO; +ROSU20TA31 PO; -SENN-263 PO; -SERT50TA PO; -UBID100C16 PO; +UBIQ100C2 PO; -ZOLP6.2523 PO
[2022-09-02 09:37] LABS: BASOPHILS % (AUTO) 0.8 % (0-1); EOSINOPHILS # (AUTO) 0.1 X10'3 (0-0.9); EOSINOPHILS % (AUTO) 2.2 % (0-6); HEMATOCRIT 40.8 % (35.0-45.0); HEMOGLOBIN 13.7 g/dl (12.0-16.0); LYMPHOCYTES # (AUTO) 1.4 X10'3 (1.1-4.8); MEAN CORPUSCULAR HEMOGLOBIN 31.2 PG (27.0-31.0); MEAN CORPUSCULAR HGB CONC 33.5 g/dL (33.0-36.5); MEAN CORPUSCULAR VOLUME 93.1 FL (78-98); MEAN PLATELET VOLUME 8.7 FL (7.4-10.4); MONOCYTES # (AUTO) 0.5 X10'3 (0-0.9); MONOCYTES % (AUTO) 8.2 % (2-12); NEUTROPHILS % (AUTO) 65.8 % (42-75); PLATELET COUNT 269 X10'3 (140-440); RED BLOOD COUNT 4.38 X10'6 (4.20-5.60); RED CELL DISTRIBUTION WIDTH 14.2 % (11.5-14.5); WHITE BLOOD COUNT 6.1 X10'3 (4.5-11.0)
[2022-09-02 09:49] LABS: ALANINE AMINOTRANSFERASE 21 U/L (12-78); ALBUMIN 3.6 G/DL (3.4-5.0); ALBUMIN/GLOBULIN RATIO 1.1 (1.1-1.5); ALKALINE PHOSPHATASE 109 IU/L (46-116); ASPARTATE AMINO TRANSFERASE 22 U/L (10-37); BILIRUBIN,TOTAL 0.6 MG/DL (0.1-1.0); BLOOD UREA NITROGEN 32 MG/DL (7-18); BUN/CREATININE RATIO 37.6 (6.6-38.0); CALCIUM 8.7 MG/DL (8.5-10.1); CHLORIDE 103 MMOL/L (99-107); CREATININE 0.85 MG/DL (0.40-0.90); GLUCOSE 103 MG/DL (70-104); POTASSIUM 3.3 MMOL/L (3.5-5.1); TOTAL PROTEIN 6.8 G/DL (6.4-8.2); eGFR 64 ML/MIN
[2022-09-02 09:50] LABS: ANION GAP 5 (8-16); SODIUM 139 MMOL/L (135-145)
[2022-09-02] MEDS ORDERED: losartan 50mg tablet PO STA (10:12)
[2022-09-02 10:32] LABS: CLARITY,URINE CLEAR (Clear); COLOR,URINE YELLOW (Yellow); GLUCOSE, URINE NEGATIVE (Neg); KETONES,URINE TRACE mg/dl (Neg); LEUKOCYTE ESTERASE ,URINE NEGATIVE (Neg); NITRITES, URINE NEGATIVE (Neg); OCCULT BLOOD,URINE NEGATIVE (Neg); PROTEIN,URINE NEGATIVE (Neg)
[2022-09-02 10:37] LABS: UA COLLECTION TYPE STRAIGHT CATH
[2022-09-02 11:26] VITALS: BP 165/65
== END 2022-09-02 11:27 | disposition home or self-care (01) ==
LOC: ER 09:05
DX: I10 Essential (primary) hypertension (principal); G30.1 Alzheimer's disease with late onset; I11.9 Hypertensive heart disease without heart failure; K21.9 Gastro-esophageal reflux disease without esophagitis; G89.29 Other chronic pain; M54.9 Dorsalgia, unspecified; F32.A Depression, unspecified; Z88.8 Allergy status to other drugs, medicaments and biological substances; Z88.5 Allergy status to narcotic agent
CPT/HCPCS: 36415; 80053; 81003; 84484; 85025; 93005; 99284; A4353

== ENCOUNTER 2023-01-07 07:38 | Emergency (ER) | payer MEDICARE, OTHER ==
[~2023-01-07] VITALS: Ht 165.1 cm; Wt 50.0 kg
[~2023-01-07 07:38] MED LIST changes: -BETA1TAB20 PO; -CHOL10006 PO; -LEVO15TA6 PO; -OMEG-117 PO; -OMEP20CA16 PO; -POLY119P2 PO; -POTA-188 PO; -PSYL575P5 PO; -ROSU20TA31 PO; -UBIQ100C2 PO
[2023-01-07] MEDS ORDERED: normal saline 1000ml 1,000 ML IV ONE ×2 (07:55→09:55)
[2023-01-07 08:35] LABS: BASOPHILS % (AUTO) 0.9 % (0-1); EOSINOPHILS # (AUTO) 0.1 X10'3 (0-0.9); EOSINOPHILS % (AUTO) 1.7 % (0-6); HEMATOCRIT 41.1 % (35.0-45.0); HEMOGLOBIN 13.7 g/dl (12.0-16.0); LYMPHOCYTES # (AUTO) 1.6 X10'3 (1.1-4.8); LYMPHOCYTES % (AUTO) 28.8 % (21-51); MEAN CORPUSCULAR HEMOGLOBIN 31.7 PG (27.0-31.0); MEAN CORPUSCULAR HGB CONC 33.3 g/dL (33.0-36.5); MEAN CORPUSCULAR VOLUME 95.3 FL (78-98); MEAN PLATELET VOLUME 8.4 FL (7.4-10.4); MONOCYTES # (AUTO) 0.5 X10'3 (0-0.9); MONOCYTES % (AUTO) 9.1 % (2-12); NEUTROPHILS # (AUTO) 3.2 X10'3 (1.8-7.7); NEUTROPHILS % (AUTO) 59.5 % (42-75); PLATELET COUNT 265 X10'3 (140-440); RED BLOOD COUNT 4.31 X10'6 (4.20-5.60); RED CELL DISTRIBUTION WIDTH 12.9 % (11.5-14.5); WHITE BLOOD COUNT 5.4 X10'3 (4.5-11.0)
[2023-01-07 08:51] LABS: ALANINE AMINOTRANSFERASE 32 U/L (12-78); ALBUMIN 3.7 G/DL (3.4-5.0); ALBUMIN/GLOBULIN RATIO 1.3 (1.1-1.5); ALKALINE PHOSPHATASE 64 IU/L (46-116); ANION GAP 7 (8-16); ASPARTATE AMINO TRANSFERASE 29 U/L (10-37); BILIRUBIN,TOTAL 0.5 MG/DL (0.1-1.0); BLOOD UREA NITROGEN 18 MG/DL (7-18); BUN/CREATININE RATIO 24.3 (10.0-20.0); CALCIUM 9.2 MG/DL (8.5-10.1); CHLORIDE 104 MMOL/L (99-107); CREATININE 0.74 MG/DL (0.40-0.90); GLUCOSE 97 MG/DL (70-104); SODIUM 141 MMOL/L (135-145); TOTAL CARBON DIOXIDE 30.2 MMOL/L (24-32); TOTAL PROTEIN 6.6 G/DL (6.4-8.2); eGFR 75 ML/MIN
[2023-01-07 09:00] LABS: POTASSIUM 4.2 MMOL/L (3.5-5.1)
--- NOTE | 2023-01-07 10:31 | NUR ---
JAMES DE LA CRUZ SPOUSE [phone].
--- NOTE | 2023-01-07 11:00 | NUR ---
[facility] [place] [phone] [facility]
[2023-01-07 11:23] LABS: CLARITY,URINE CLEAR (Clear); COLOR,URINE YELLOW (Yellow); GLUCOSE, URINE NEGATIVE (Neg); KETONES,URINE NEGATIVE (Neg); LEUKOCYTE ESTERASE ,URINE SMALL (Neg); NITRITES, URINE NEGATIVE (Neg); OCCULT BLOOD,URINE NEGATIVE (Neg); PROTEIN,URINE NEGATIVE (Neg); UROBILINOGEN,URINE 0.2 E.U/dL (0.2-1.0)
[2023-01-07 11:24] LABS: UA COLLECTION TYPE STRAIGHT CATH
[2023-01-07 11:40] LABS: BACTERIA,URINE FEW /HPF (Neg); RBC,URINE 0-2 /HPF (0-2)
[2023-01-07 11:41] LABS: SQUAMOUS EPITHELIAL CELL,UR FEW /LPF (FEW); TRANSITIONAL EPI CELLS,URINE FEW /HPF
[2023-01-07] MEDS ORDERED: acetaminophen 325mg tablet PO ONE (11:45)
[2023-01-07] MEDS ORDERED: CefTRIAXone/D5W-Rocephin 1gm 50 ML IV ONE (11:50)
[2023-01-07 14:39] VITALS: BP_DIAS 85
[2023-01-07] MEDS ORDERED: amLODIPine 5mg tablet PO ONE (14:45)
[2023-01-07] MEDS ORDERED: CEPH-585 PO (14:49)
[2023-01-07 14:55] VITALS: BP_SYST 197
--- NOTE | 2023-01-07 15:03 | NUR ---
Spoke to Chaya, director of real estate about [facility] being discharge today anf that we need transportation for this patient back there. Chaya said we can go ahead and call [employer] for transportation
== END 2023-01-07 16:14 | disposition home or self-care (01) ==
LOC: ER 07:38
DX: N39.0 Urinary tract infection, site not specified (principal); Z20.822 Contact with and (suspected) exposure to COVID-19; I11.9 Hypertensive heart disease without heart failure; E78.00 Pure hypercholesterolemia, unspecified; G89.29 Other chronic pain; M54.9 Dorsalgia, unspecified; F32.A Depression, unspecified; Z88.8 Allergy status to other drugs, medicaments and biological substances; Z88.6 Allergy status to analgesic agent; Z79.899 Other long term (current) drug therapy; Z79.1 Long term (current) use of non-steroidal anti-inflammatories (NSAID)
CPT/HCPCS: 36415; 71045; 80053; 81001; 83605; 83880; 84145; 84484; 85025; 87040; 87088; 87502; 87503; 87811; 93005; 96361; 96365; 99285; J0696; J7030; A4353

== ENCOUNTER 2023-03-02 07:35 | Emergency (ER) | payer MEDICARE, OTHER ==
[~2023-03-02] VITALS: Ht 165.1 cm; Wt 50.0 kg
[2023-03-02 08:25] LABS: BASOPHILS % (AUTO) 0.6 % (0-1); EOSINOPHILS # (AUTO) 0.1 X10'3 (0-0.9); EOSINOPHILS % (AUTO) 1.1 % (0-6); HEMATOCRIT 40.7 % (35.0-45.0); HEMOGLOBIN 13.1 g/dl (12.0-16.0); LYMPHOCYTES # (AUTO) 1.9 X10'3 (1.1-4.8); LYMPHOCYTES % (AUTO) 23.7 % (21-51); MEAN CORPUSCULAR HEMOGLOBIN 30.6 PG (27.0-31.0); MEAN CORPUSCULAR HGB CONC 32.3 g/dL (33.0-36.5); MEAN CORPUSCULAR VOLUME 94.8 FL (78-98); MEAN PLATELET VOLUME 8.1 FL (7.4-10.4); MONOCYTES # (AUTO) 0.7 X10'3 (0-0.9); MONOCYTES % (AUTO) 8.8 % (2-12); NEUTROPHILS # (AUTO) 5.1 X10'3 (1.8-7.7); NEUTROPHILS % (AUTO) 65.8 % (42-75); PLATELET COUNT 284 X10'3 (140-440); RED BLOOD COUNT 4.29 X10'6 (4.20-5.60); WHITE BLOOD COUNT 7.8 X10'3 (4.5-11.0)
[2023-03-02 08:40] LABS: ALANINE AMINOTRANSFERASE 32 U/L (12-78); ALBUMIN 3.8 G/DL (3.4-5.0); ALBUMIN/GLOBULIN RATIO 1.2 (1.1-1.5); ALKALINE PHOSPHATASE 64 IU/L (46-116); ANION GAP 8 (8-16); ASPARTATE AMINO TRANSFERASE 17 U/L (10-37); BILIRUBIN,TOTAL 0.5 MG/DL (0.1-1.0); BLOOD UREA NITROGEN 25 MG/DL (7-18); BUN/CREATININE RATIO 28.7 (10.0-20.0); CALCIUM 8.8 MG/DL (8.5-10.1); CHLORIDE 104 MMOL/L (99-107); CREATININE 0.87 MG/DL (0.40-0.90); GLUCOSE 97 MG/DL (70-104); POTASSIUM 3.6 MMOL/L (3.5-5.1); SODIUM 141 MMOL/L (135-145); TOTAL CARBON DIOXIDE 28.7 MMOL/L (24-32); eGFR 62 ML/MIN
[2023-03-02] MEDS ORDERED: DULO60CA65 PO (09:36)
[2023-03-02 10:31] VITALS: BP 162/69
== END 2023-03-02 10:35 ==
LOC: ER 07:36
DX: F32.A Depression, unspecified (principal); E78.00 Pure hypercholesterolemia, unspecified; I10 Essential (primary) hypertension; K21.9 Gastro-esophageal reflux disease without esophagitis; Z88.8 Allergy status to other drugs, medicaments and biological substances
CPT/HCPCS: 36415; 80053; 84145; 85025; 99284

== ENCOUNTER 2023-06-13 15:34 | Emergency (ER) | payer MEDICARE, OTHER ==
[~2023-06-13] VITALS: Ht 165.1 cm; Wt 53.0 kg
[~2023-06-13 15:34] MED LIST changes: +DULO60CA65 PO
[2023-06-13 16:20] VITALS: TEMP 98
[2023-06-13 17:29] LABS: BASOPHILS # (AUTO) 0.1 X10'3 (0-0.2); BASOPHILS % (AUTO) 1.1 % (0-1); EOSINOPHILS # (AUTO) 0.2 X10'3 (0-0.9); EOSINOPHILS % (AUTO) 2.6 % (0-6); HEMATOCRIT 35.3 % (35.0-45.0); HEMOGLOBIN 11.6 g/dl (12.0-16.0); LYMPHOCYTES # (AUTO) 1.6 X10'3 (1.1-4.8); MEAN CORPUSCULAR HEMOGLOBIN 30.9 PG (27.0-31.0); MEAN CORPUSCULAR HGB CONC 32.7 g/dL (33.0-36.5); MEAN CORPUSCULAR VOLUME 94.5 FL (78-98); MEAN PLATELET VOLUME 8.1 FL (7.4-10.4); MONOCYTES # (AUTO) 0.8 X10'3 (0-0.9); MONOCYTES % (AUTO) 10.2 % (2-12); NEUTROPHILS % (AUTO) 65.1 % (42-75); PLATELET COUNT 339 X10'3 (140-440); RED BLOOD COUNT 3.74 X10'6 (4.20-5.60); RED CELL DISTRIBUTION WIDTH 15.2 % (11.5-14.5); WHITE BLOOD COUNT 7.6 X10'3 (4.5-11.0)
[2023-06-13 17:45] LABS: ALANINE AMINOTRANSFERASE 7 U/L (12-78); ALBUMIN 3.2 G/DL (3.4-5.0); ALBUMIN/GLOBULIN RATIO 0.9 (1.1-1.5); ALKALINE PHOSPHATASE 155 IU/L (46-116); ANION GAP 5 (8-16); ASPARTATE AMINO TRANSFERASE 15 U/L (10-37); BILIRUBIN,TOTAL 0.3 MG/DL (0.1-1.0); BLOOD UREA NITROGEN 30 MG/DL (7-18); BUN/CREATININE RATIO 30.3 (10.0-20.0); CALCIUM 8.9 MG/DL (8.5-10.1); CHLORIDE 107 MMOL/L (99-107); CREATININE 0.99 MG/DL (0.40-0.90); GLUCOSE 107 MG/DL (70-104); POTASSIUM 4.3 MMOL/L (3.5-5.1); SODIUM 141 MMOL/L (135-145); TOTAL CARBON DIOXIDE 29.4 MMOL/L (24-32); TOTAL PROTEIN 6.6 G/DL (6.4-8.2); eCRCL 37 ML/MIN; eGFR 54 ML/MIN
[2023-06-13 18:13] VITALS: BP 163/66; PULSE 68; RESP 16; O2SAT 99
[2023-06-13 18:22] LABS: BILIRUBIN,URINE NEGATIVE (Neg); CLARITY,URINE SLIGHTLY CLOUDY (Clear); COLOR,URINE YELLOW (Yellow); GLUCOSE, URINE NEGATIVE (Neg); KETONES,URINE 15 mg/dl (Neg); LEUKOCYTE ESTERASE ,URINE NEGATIVE (Neg); NITRITES, URINE NEGATIVE (Neg); OCCULT BLOOD,URINE NEGATIVE (Neg); PH,URINE 6.5 (4.8-8.0); PROTEIN,URINE NEGATIVE (Neg)
[2023-06-13 18:32] LABS: UA COLLECTION TYPE STRAIGHT CATH
[2023-06-13 18:34] LABS: MUCUS STRANDS MANY /LPF (Neg); SQUAMOUS EPITHELIAL CELL,UR NONE SEEN /LPF (FEW)
[2023-06-13 18:35] LABS: RBC,URINE 0-2 /HPF (0-2); WBC,URINE 0-4 /HPF (0-4)
[2023-06-13 18:36] LABS: BACTERIA,URINE 2+ /HPF (Neg)
== END 2023-06-13 19:22 | disposition home or self-care (01) ==
LOC: ER 15:35
DX: Z04.3 Encounter for examination and observation following other accident (principal); R51.9 Headache, unspecified; E78.00 Pure hypercholesterolemia, unspecified; I10 Essential (primary) hypertension; K21.9 Gastro-esophageal reflux disease without esophagitis; Z88.8 Allergy status to other drugs, medicaments and biological substances; Z79.899 Other long term (current) drug therapy; Z86.59 Personal history of other mental and behavioral disorders
CPT/HCPCS: 36415; 70450; 71045; 80053; 81001; 82948; 84484; 85025; 93005; 99285; A4353

== ENCOUNTER 2024-01-07 09:18 | Emergency (ER) | payer MEDICARE, OTHER ==
[~2024-01-07] VITALS: Ht 160 cm; Wt 60.0 kg
[2024-01-07 09:22] VITALS: BP 135/57; PULSE 72; RESP 18; TEMP 98.8; O2SAT 99
== END 2024-01-07 16:39 | disposition left against medical advice (07) ==
LOC: ER 09:19
DX: S09.90XA Unspecified injury of head, initial encounter (principal); Z53.21 Procedure and treatment not carried out due to patient leaving prior to being seen by health care provider; W19.XXXA Unspecified fall, initial encounter; Y93.89 Activity, other specified; Y92.89 Other specified places as the place of occurrence of the external cause; Y99.8 Other external cause status